=== PATIENT | male | born 1965 | race Caucasian/White ===

== ENCOUNTER 2017-03-02 06:32 | Emergency (ER) | payer SELFPAY ==
--- NOTE | 2017-03-02 07:28 | EDM.PDOC ---
ED HPI GENERAL MEDICAL PROBLEM - General Chief Complaint: General Stated Complaint: L SIDE CHEST PAIN/UNDER ARM Time Seen by Provider: 03/02/17 07:07 Source of Information: Reports: Patient, RN Notes Reviewed History Limitations: Reports: No Limitations - History of Present Illness INITIAL COMMENTS - FREE TEXT/NARRATIVE: The patient states that he has had a left axillary ache on and off for the past year. He states that it feels like gas. He has not identified any modifiers. He states that he fell twice about 5 years ago, then once onto his left side about 2 years ago, but cannot say that the fall had anything to do with the pain. He denies chest pain, palpitations, or dyspnea. He reports occasional hot flashes, but no nausea, diaphoresis, or sense of impending doom. The patient does not have a PCP, and has not previously seen a physician for this complaint. Left Chest Pain Score (Numeric/FACES): 3 - Related Data Allergies Allergy/AdvReac Type Severity Reaction Status Date / Time No Known Allergies Allergy Verified 03/02/17 06:46 Home Meds: Home Meds Ranitidine HCl [Zantac] 300 mg PO DAILY 03/17/16 [History] Pantoprazole Sodium [Protonix] 40 mg PO BID #60 tablet. 03/19/16 [Rx] Docusate Sodium [Stool Softener] 50 mg PO DAILY 07/14/16 [History] Orphenadrine [Norflex] 1 tab PO Q12H #20 tab.er 03/02/17 [Rx] Past Medical History HEENT History: Reports: Impaired Vision, Other (See Below) Other HEENT History: corrective lenses Respiratory History: Reports: Sleep Apnea Gastrointestinal History: Reports: GERD, GI Bleed, Hiatal Hernia Psychiatric History: Reports: Anxiety Endocrine/Metabolic History: Reports: Obesity/BMI 30+ - Infectious Disease History Infectious Disease History: Reports: Chicken Pox, Mumps - Past Surgical History GI Surgical History: Reports: Appendectomy Social & Family History - Family History Family Medical History: Noncontributory - Tobacco Use Smoking Status *Q: Never Smoker Second Hand Smoke Exposure: No - Caffeine Use Caffeine Use: Reports: Coffee - Alcohol Use Alcohol Use History: Yes Days Per Week of Alcohol Use: 2 Number of Drinks Per Day: 1 Total Drinks Per Week: 2 Alcohol Use Frequency: Socially - Recreational Drug Use Recreational Drug Use: No - Living Situation & Occupation Living situation: Reports: Occupation: Employed ([employer]) ED ROS GENERAL - Review of Systems Review Of Systems: See Below Constitutional: Reports: Other (Occasional hot flashes) HEENT: Reports: No Symptoms Respiratory: Reports: No Symptoms Cardiovascular: Reports: No Symptoms Endocrine: Reports: No Symptoms GI/Abdominal: Reports: No Symptoms : Reports: No Symptoms Musculoskeletal: Reports: No Symptoms Skin: Reports: No Symptoms Neurological: Reports: No Symptoms Psychiatric: Reports: No Symptoms Hematologic/Lymphatic: Reports: No Symptoms Immunologic: Reports: No Symptoms ED EXAM, GENERAL - Physical Exam Exam: See Below Exam Limited By: No Limitations General Appearance: Alert, WD/WN, No Apparent Distress Eye Exam: Bilateral Eye: Normal Inspection Ears: Normal External Exam, Hearing Grossly Normal Ear Exam: Bilateral Ear: Auricle Normal Nose: Normal Inspection, No Blood Throat/Mouth: Normal Inspection, Normal Lips, Normal Voice, No Airway Compromise Head: Atraumatic, Normocephalic Neck: Normal Inspection, Full Range of Motion Respiratory/Chest: No Respiratory Distress, Lungs Clear, Normal Breath Sounds, No Accessory Muscle Use, Other (Reproducible tenderness to the inferior aspect of the left pectoral muscle, particularly about the anterior axillary line. Nontender to surrounding area.) Cardiovascular: Normal Peripheral Pulses, Regular Rate, Rhythm, No Gallop, No JVD, No Murmur, No Rub Peripheral Pulses: 4+: Radial (L), Radial (R) GI/Abdominal: Normal Bowel Sounds, Soft, Non-Tender, No Organomegaly, No Distention, No Abnormal Bruit, No Mass, Other (Obese) (Male) Exam: Deferred Rectal (Males) Exam: Deferred Back Exam: Normal Inspection, Full Range of Motion, NT Extremities: Normal Inspection, Normal Range of Motion, Non-Tender (to left shoulder, humerus.), No Pedal Edema, Normal Capillary Refill. No: Limited Range of Motion (to LUE, shoulder) Neurological: Alert, Oriented, Normal Cognition, No Motor/Sensory Deficits Psychiatric: Normal Affect Skin Exam: Warm, Dry, Intact, Normal Color, No Rash Lymphatic: No Adenopathy Course - Vital Signs Last Recorded V/S: Last Vital Signs Temp 36.7 C 03/02/17 06:40 Pulse 81 03/02/17 06:40 Resp 18 03/02/17 06:40 BP 156/65 H 03/02/17 06:40 Pulse Ox 99 03/02/17 06:40 - Orders/Labs/Meds Orders: Active Orders 24 hr Category Date Time Status Chest 2V [CR] Stat Exams 03/02/17 07:20 Taken - Radiology Interpretation Free Text/Narrative:: Two-view chest radiograph appears to be grossly normal. Cardiac silhouette is within normal limits. No pulmonary vascular congestion. No pleural effusions. No focal infiltrate. No pneumothorax. Formal read per the Radiologist pending. - Re-Assessments/Exams Free Text/Narrative Re-Assessment/Exam: 03/02/17 08:18 Test results discussed with the patient. Because the symptoms are reproducible with palpation, the cause of the patient's pain is most likely musculoskeletal in etiology. 4 today's purposes, I will prescribe Norflex, however, I will refer the patient to the clinic, should his symptoms persist. It was explained to the patient that the diagnostic abilities in the ED are limited. Departure - Departure Time of Disposition: 08:18 Disposition: Home, Self-Care 01 Condition: Good Clinical Impression: Musculoskeletal chest pain - Discharge Information Referrals: PCP,Marcelino [Primary Care Provider] - Yuni Dunn PA-C [Physician [employer]] - Forms: ED Department Discharge Additional Instructions: You were seen in the emergency room for pain to the front of your left armpit area, on and off for the last year. Workup in the ER included a chest x-ray, which was normal. Because your pain is able to be reproduced by pressing on the left side of your chest, the cause of your pain is MOST LIKELY musculoskeletal. You have been started on the muscle relaxant Norflex. Take 1 tablet every 12 hours, as prescribed. If your symptoms persist, please follow-up with Yuni Dunn in the clinic. If any other problems, please do not hesitate to return to the ER. - My Orders Last 24 Hours: My Active Orders 03/02/17 07:20 Chest 2V [CR] Stat - Assessment/Plan Last 24 Hours: My Active Orders 03/02/17 07:20 Chest 2V [CR] Stat
[2017-03-02] MEDS ORDERED: Orphenadrine 100 MG Tab.ER PO STA (08:17)
--- NOTE | 2017-03-02 08:20 | CR ---
Chest: Two views of the chest were obtained. Comparison: No previous study. Heart size and mediastinum are within normal limits. Lungs are clear. Degenerative spurring is noted within the spine with scattered disc space narrowing. Mild thickening of the left clavicle compatible with old healed fracture is noted. Impression: 1. Incidental findings. Nothing acute is appreciated on two-view chest x-ray. Diagnostic code #2
[2017-03-02 08:35] VITALS: BP 126/84
== END 2017-03-02 08:35 | disposition home or self-care (01) ==
LOC: JD.ED 06:32
DX: R07.89 Other chest pain (principal); G47.30 Sleep apnea, unspecified; K21.9 Gastro-esophageal reflux disease without esophagitis; F41.9 Anxiety disorder, unspecified; E66.9 Obesity, unspecified; Z90.49 Acquired absence of other specified parts of digestive tract; Z79.899 Other long term (current) drug therapy
CPT/HCPCS: 71020; 99283; A9270

== ENCOUNTER 2019-05-10 11:29 | Emergency (ER) | payer BC ==
--- NOTE | 2019-05-10 11:59 | EDM.PDOC ---
ED HPI GENERAL MEDICAL PROBLEM - General Stated Complaint: POSS BLOOD TRANS Time Seen by Provider: 05/10/19 11:59 Source of Information: Reports: Patient History Limitations: Reports: No Limitations - History of Present Illness INITIAL COMMENTS - FREE TEXT/NARRATIVE: Patient is a 53-year-old male with a history of alcoholism, pedal edema, anemia , and upper GI bleed. He presents to the ED complaining of bilateral lower extremity edema that increased over the past 3 weeks, dizziness, fatigue, chills , with intermittent nausea and vomiting. He denies any chest pain or documented fever. He has a history of GERD and states he is on Prilosec 20 mg every day. Recently diagnosed with UTI one week ago and has been on Cipro since. The UTI symptoms have resolved. He did go to the clinic today with these concerns and lab work was obtained with the finding the patient was anemic. They did do a chest x-ray which showed cardiomegaly. They also did a CT of the abdomen and pelvis which revealed anasarca, hepatomegaly, splenomegaly, trace pericardial effusion, and ascites. Patient has not noted any dark tarry stools or mike blood within the stools. He does have some mild swelling to his testicles with some intermittent discomfort with development of swelling to legs. He has no history of malignancy. He has not been consuming alcohol. Denies any recent sick exposures. He has had similar symptoms 2-3 years ago with EGD and colonoscopy revealing upper GI bleed. In addition has intermittent swelling to legs that wax and wane. Patient denies chest pain, shortness of breath at rest, hemoptysis, productive cough, abdominal pain, nausea/vomiting, dysuria. He does complain of some mild discomfort to his genital region but notes there is no bruising or discoloration noted or significant pain with palpation of his testicles. - Related Data Allergies Allergy/AdvReac Type Severity Reaction Status Date / Time No Known Allergies Allergy Verified 05/10/19 12:00 Home Meds: Home Meds Ciprofloxacin [Ciprofloxacin HCl] 500 mg PO BID 05/10/19 [History] Famotidine [Pepcid] 20 mg PO DAILY 05/10/19 [History] Past Medical History HEENT History: Reports: Impaired Vision, Other (See Below) Other HEENT History: corrective lenses Respiratory History: Reports: Sleep Apnea Gastrointestinal History: Reports: GERD, GI Bleed, Hiatal Hernia Musculoskeletal History: Reports: Back Pain, Chronic Other Musculoskeletal History: chronic neck stiffness Psychiatric History: Reports: Anxiety Endocrine/Metabolic History: Reports: Obesity/BMI 30+ Oncologic (Cancer) History: Reports: None - Infectious Disease History Infectious Disease History: Reports: Chicken Pox, Mumps - Past Surgical History GI Surgical History: Reports: Appendectomy Social & Family History - Family History Family Medical History: Noncontributory - Caffeine Use Caffeine Use: Reports: Coffee - Living Situation & Occupation Living situation: Reports: Occupation: Employed ([employer]) ED ROS GENERAL - Review of Systems Review Of Systems: ROS reveals no pertinent complaints other than HPI. ED EXAM, GI/ABD - Physical Exam Exam: See Below Exam Limited By: No Limitations General Appearance: Alert, WD/WN, Obese Ears: Hearing Grossly Normal Nose: Normal Inspection Throat/Mouth: Normal Voice, No Airway Compromise, Other (dry oral mucosa) Head: Atraumatic, Normocephalic Neck: Normal Inspection, Supple, Non-Tender, Full Range of Motion. No: Lymphadenopathy (L), Lymphadenopathy (R) Respiratory/Chest: No Respiratory Distress, Lungs Clear, Normal Breath Sounds, No Accessory Muscle Use, Chest Non-Tender Cardiovascular: Normal Peripheral Pulses, Regular Rate, Rhythm, Systolic Murmur GI/Abdominal Exam: Normal Bowel Sounds, Soft, Non-Tender, No Organomegaly, No Distention (Male) Exam: Deferred Rectal (Males) Exam: Heme + Stool Back Exam: Normal Inspection. No: CVA Tenderness (L), CVA Tenderness (R) Extremities: Pedal Edema (pitting edema to mid thigh bilaterally with no pain, redness, or increased warmth noted. ) Neurological: Alert, Oriented, CN II-XII Intact, Normal Cognition, No Motor/ Sensory Deficits Psychiatric: Normal Affect, Normal Mood Skin Exam: Warm, Dry, Intact, No Rash, Pallor Course - Vital Signs Last Recorded V/S: Last Vital Signs Temp 99.7 F 05/10/19 16:15 Pulse 90 05/10/19 16:15 Resp 16 05/10/19 16:15 BP 140/84 05/10/19 16:15 Pulse Ox 100 05/10/19 16:15 - Orders/Labs/Meds Orders: Active Orders 24 hr Category Date Time Status EKG 12 Lead [EKG Documentation Completion] [RC] STAT Care 05/10/19 12:32 Active RED BLOOD CELLS LP [BBK] Stat Lab 05/10/19 12:12 Results TYPE AND SCREEN [BBK] Stat Lab 05/10/19 12:12 Results Labs: Laboratory Tests 05/10/19 05/10/19 05/10/19 Range/Units 12:12 12:12 12:12 WBC 3.85 L (4.23-9.07) K/mm3 RBC 2.74 L (4.63-6.08) M/mm3 Hgb 3.9 L* D (13.7-17.5) gm/L Hct 17.1 L (40.1-51.0) % MCV 62.4 L D (79.0-92.2) fl MCH 14.2 L (25.7-32.2) pg MCHC 22.8 L (32.2-35.5) g/dl RDW Std Deviation 50.2 H (35.1-43.9) fL Plt Count 273 D (163-337) K/mm3 Neutrophils % (Manual) 73 H (40-60) % Band Neutrophils % 1 (0-10) % Lymphocytes % (Manual) 24 (20-40) % Atypical Lymphs % 0 % Immat Monocytes % (Man) 0 Monocytes % (Manual) 2 (2-10) % Eosinophils % (Manual) 0 L (0.8-7.0) % Basophils % (Manual) 0 L (0.2-1.2) Metamyelocytes % 0 Myelocytes % 0 Promyelocytes % 0 Blast Cells % 0 Plasma Cell % (Manual) 0 Nucleated RBCs 0.0 % Platelet Estimate Adequate Hypochromasia 2+ moderate Poikilocytosis 1+ slight Anisocytosis 2+ moderate Microcytosis 2+ moderate Elliptocytes 1+ slight RBC Morph Comment Not Reportable PT (9.7-12.0) SECONDS INR APTT (22-31) SECONDS Sodium 138 (136-145) mEq/L Potassium 4.2 (3.5-5.1) mEq/L Chloride 103 (98-107) mEq/L Carbon Dioxide 25 (21-32) mEq/L Anion Gap 14.2 (5-15) BUN 12 (7-18) mg/dL Creatinine 0.8 (0.7-1.3) mg/dL Est Cr Clr Drug Dosing 111.12 mL/min Estimated GFR (MDRD) > 60 (>60) mL/min BUN/Creatinine Ratio 15.0 (14-18) Glucose 109 H (74-106) mg/dL Calcium 8.3 L (8.5-10.1) mg/dL Total Bilirubin 1.5 H (0.2-1.0) mg/dL AST 16 (15-37) U/L ALT 31 (16-63) U/L Alkaline Phosphatase 99 (46-116) U/L Troponin I < 0.017 (0.00-0.056) ng/mL C-Reactive Protein 2.5 H* (<1.0) mg/dL Total Protein 6.5 (6.4-8.2) g/dl Albumin 3.1 L (3.4-5.0) g/dl Globulin 3.4 gm/dL Albumin/Globulin Ratio 0.9 L (1-2) Urine Color (Yellow) Urine Appearance (Clear) Urine pH (5.0-8.0) Ur Specific [place] (1.005-1.030) Urine Protein (Negative) Urine Glucose (UA) (Negative) Urine Ketones (Negative) Urine Occult Blood (Negative) Urine Nitrite (Negative) Urine Bilirubin (Negative) Urine Urobilinogen (0.2-1.0) Ur Leukocyte Esterase (Negative) Urine RBC (0-5) /hpf Urine WBC (0-5) /hpf Ur Squamous Epith Cells (0-5) /hpf Urine Bacteria (FEW) /hpf Urine Mucus (FEW) /hpf Blood Type O POSITIVE Gel Antibody Screen Negative Crossmatch See Detail 05/10/19 05/10/19 Range/Units 12:12 13:38 WBC (4.23-9.07) K/mm3 RBC (4.63-6.08) M/mm3 Hgb (13.7-17.5) gm/L Hct (40.1-51.0) % MCV (79.0-92.2) fl MCH (25.7-32.2) pg MCHC (32.2-35.5) g/dl RDW Std Deviation (35.1-43.9) fL Plt Count (163-337) K/mm3 Neutrophils % (Manual) (40-60) % Band Neutrophils % (0-10) % Lymphocytes % (Manual) (20-40) % Atypical Lymphs % % Immat Monocytes % (Man) Monocytes % (Manual) (2-10) % Eosinophils % (Manual) (0.8-7.0) % Basophils % (Manual) (0.2-1.2) Metamyelocytes % Myelocytes % Promyelocytes % Blast Cells % Plasma Cell % (Manual) Nucleated RBCs % Platelet Estimate Hypochromasia Poikilocytosis Anisocytosis Microcytosis Elliptocytes RBC Morph Comment PT 13.4 H (9.7-12.0) SECONDS INR 1.24 APTT 29 (22-31) SECONDS Sodium (136-145) mEq/L Potassium (3.5-5.1) mEq/L Chloride (98-107) mEq/L Carbon Dioxide (21-32) mEq/L Anion Gap (5-15) BUN (7-18) mg/dL Creatinine (0.7-1.3) mg/dL Est Cr Clr Drug Dosing mL/min Estimated GFR (MDRD) (>60) mL/min BUN/Creatinine Ratio (14-18) Glucose (74-106) mg/dL Calcium (8.5-10.1) mg/dL Total Bilirubin (0.2-1.0) mg/dL AST (15-37) U/L ALT (16-63) U/L Alkaline Phosphatase (46-116) U/L Troponin I (0.00-0.056) ng/mL C-Reactive Protein (<1.0) mg/dL Total Protein (6.4-8.2) g/dl Albumin (3.4-5.0) g/dl Globulin gm/dL Albumin/Globulin Ratio (1-2) Urine Color Yellow (Yellow) Urine Appearance Clear (Clear) Urine pH 7.0 (5.0-8.0) Ur Specific [place] 1.015 (1.005-1.030) Urine Protein Negative (Negative) Urine Glucose (UA) Negative (Negative) Urine Ketones Negative (Negative) Urine Occult Blood Negative (Negative) Urine Nitrite Negative (Negative) Urine Bilirubin Negative (Negative) Urine Urobilinogen 0.2 (0.2-1.0) Ur Leukocyte Esterase Negative (Negative) Urine RBC Not seen (0-5) /hpf Urine WBC Not seen (0-5) /hpf Ur Squamous Epith Cells 0-5 (0-5) /hpf Urine Bacteria Not seen (FEW) /hpf Urine Mucus Not seen (FEW) /hpf Blood Type Gel Antibody Screen Crossmatch Meds: Medications Discontinued Medications Generic Name Dose Route Start Last Admin Trade Name Cullen PRN Reason Stop Dose Admin Pantoprazole Sodium 80 mg/ 100 mls @ 10 mls/hr 05/10/19 12:45 05/10/19 13:14 Sodium Chloride IV 8 mg/hr Q10H MARIALUISA 10 mls/hr Administration 8 MG/HR Sodium Chloride Confirm 05/10/19 15:52 05/10/19 16:35 Normal Saline Administered 05/10/19 15:53 Not Given Dose 50 mls @ as directed .ROUTE .STK-MED ONE Sodium Chloride 50 mls @ 1 mls/hr 05/10/19 16:45 05/10/19 16:12 Normal Saline IV 1 mls/hr ASDIRECTED MARIALUISA Administration Pantoprazole Sodium 40 mg 05/10/19 12:44 05/10/19 12:53 Protonix Iv IVPUSH 05/10/19 12:45 40 mg ONETIME ONE Administration - Re-Assessments/Exams Free Text/Narrative Re-Assessment/Exam: Patient is a 53-year-old male who presents to the ED with a history of low hemoglobin with shortness of breath with ambulation and also increased swelling to his lower extremities. States she's noticed a swelling to his legs over the past 3-4 weeks with increased as of recent. States he was evaluated at [facility] today with labwork obtained. Hemoglobin was found to be 4.3. His chemistry panel is essentially normal. White blood cell count was 5.5. Platelets 341. Differential was abnormal. States he has a slight cough which is normal for the patient nonproductive. Patient does not smoke. Has a history of GI bleed 3 years ago with EGD and colonoscopy obtained. Recently diagnosed with the urinary tract infection one week ago placed on Cipro and states all the dysuria has resolved. He has 2 doses of the Cipro left. He also complains some mild swelling to his testicles with pain present. This is been a chronic issue for quite some time. I will repeat his chem 14 since receiving IV contrast today for a baseline while hospitalized. In addition CBC will be obtained along with coag studies, CRP, troponin, EKG, urinalysis, type and screen with 2 units of PRBCs ordered. He does have pitting edema just above his knees bilaterally. Pro-BNP has been ordered. Chest x-ray obtained today indicating marked cardiomegaly a. Aorta is unremarkable. Pulmonary vascularity is normal. No acute alveolar infiltrates or pleural effusions are identified. Degenerative changes of the thoracic spine is present. CT of the abdomen and pelvis impression: Trace pericardial effusion. Mild cardiomegaly. Mild fatty infiltration of the liver. Hepatomegaly. Splenomegaly. Trace ascites in the pelvis. Anasarca. Stool Hemoccult test was positive. IV Protonix bolus 40 mg ordered along with IV Protonix drip. EKG sinus rhythm rate 84 with RI interval 194, QTC 488, no acute ST changes noted. Labs reviewed: White blood cell count 3.85, hemoglobin 3.9, MCV 62.4, platelet count 273, neutrophil percentage 73 with no left shift. INR 1.24. Soda potassium normal. EKG normal. Creatinine 0.8. Troponin less than 0.017. CRP 2.5. UA negative. Pro BNP is pending. 1451 I have spoken with Dr. Curiel environmental inspector General Surgeon suggested speaking with Dr. Goddard environmental inspector hospitalists for admission. [address] Goddard recommended transfer to [place] for GI consult. Suspects patient may have esophageal varicies as culprit for bleed. I have discussed with the patient and he has agreed to be transferred. Requests [facility]. [address] Mckenzie and Dr. Lynn with [facility]. They have agreed to admit patient. Transfer packet has been completed and EMS has been notified for transfer. Per nursing staff the second unit of blood has just started. Departure - Departure Time of Disposition: 15:26 Disposition: DC/Tfer to [facility] 02 Clinical Impression: Anasarca, Cardiomegaly GI bleed Qualifiers: GI bleed type/associated pathology: unspecified gastrointestinal hemorrhage type Qualified Code(s): K92.2 - Gastrointestinal hemorrhage, unspecified Anemia Qualifiers: Anemia type: iron deficiency Iron deficiency anemia type: chronic blood loss Qualified Code(s): D50.0 - Iron deficiency anemia secondary to blood loss ( chronic) Ascites Qualifiers: Ascites type: other type Qualified Code(s): R18.8 - Other ascites - Discharge Information Referrals: Simone Valdovinos Jr, MD [Primary Care Provider] - Forms: ED Department Discharge - My Orders Last 24 Hours: My Active Orders 05/10/19 12:12 RED BLOOD CELLS LP [BBK] Stat TYPE AND SCREEN [BBK] Stat 05/10/19 12:32 EKG 12 Lead [EKG Documentation Completion] [RC] STAT - Assessment/Plan Last 24 Hours: My Active Orders 05/10/19 12:12 RED BLOOD CELLS LP [BBK] Stat TYPE AND SCREEN [BBK] Stat 05/10/19 12:32 EKG 12 Lead [EKG Documentation Completion] [RC] STAT
[2019-05-10] MEDS ORDERED: Pantoprazole 40 MG Vial IVPUSH ONE (12:44)
[2019-05-10] MEDS ORDERED: Pantoprazole 80 MG in Sodium Chloride 0.9% 100 ML IV SCH (12:45)
[2019-05-10] MEDS ORDERED: Sodium Chloride 0.9% 50 ML ONE (15:52)
[2019-05-10 16:17] VITALS: BP 140/84
[2019-05-10] MEDS ORDERED: Sodium Chloride 0.9% 50 ML IV SCH (16:45)
== END 2019-05-10 16:24 ==
LOC: JD.ED 11:29
DX: I51.7 Cardiomegaly (principal); K92.2 Gastrointestinal hemorrhage, unspecified; D50.0 Iron deficiency anemia secondary to blood loss (chronic); R18.8 Other ascites; K21.9 Gastro-esophageal reflux disease without esophagitis; E66.9 Obesity, unspecified; Z90.49 Acquired absence of other specified parts of digestive tract; Z68.34 Body mass index [BMI] 34.0-34.9, adult; Z79.899 Other long term (current) drug therapy
CPT/HCPCS: 36415; 36430; 80053; 81001; 82270; 84484; 85007; 85027; 85610; 85730; 86140; 86850; 86900; 86901; 86922; 93005; 96365; 96366; 96376; 99285; C9113; J7030; J7050; P9016; 93010

== ENCOUNTER 2020-07-22 06:45 | Day surgery (SDC) | payer BC ==
[2020-07-22] MEDS ORDERED: Lactated Ringers 1,000 ML IV SCH (07:00)
[2020-07-22] MEDS ORDERED: Lidocaine 1%/Sod Bicarbonate in NS 8.4% 1 ML Syringe IDERM PRN (07:00)
[2020-07-22] MEDS ORDERED: Sodium Chloride 0.9% 10 ML Syringe FLUSH PRN (07:00)
[2020-07-22] MEDS ORDERED: Lidocaine 1% 4 ML ONE (07:22)
[2020-07-22] MEDS ORDERED: fentaNYL 100 MCG/2 ML SDV ONE (07:23)
[2020-07-22] MEDS ORDERED: Ketamine 500 mg/10 ML MDV ONE (07:23)
[2020-07-22] MEDS ORDERED: Propofol 200 MG/20 ML SDV ONE ×2 (07:23→08:05)
--- NOTE | 2020-07-22 07:36 | PCM.PREANE ---
Preanesthetic Assessment - Procedure Proposed Procedure: EGD with colonoscopy - Anesthesia/Transfusion/Family Hx Anesthesia History: Prior Anesthesia Without Reaction (had a headache one time after an endoscopy) Family History of Anesthesia Reaction: No Transfusion History: Prior Transfusion Without Reaction Additional History: No previous difficulties with intubation with which the patient is aware - Review of Systems General: No Symptoms Pulmonary: No Symptoms Cardiovascular: No Symptoms Gastrointestinal: No Symptoms Neurological: No Symptoms Other: Reports: None - Physical Assessment NPO Status Date: 07/22/20 (greater than 8 hours) Vital Signs: Last Vital Signs Temp 36.4 C 07/22/20 06:55 Pulse 89 07/22/20 06:55 Resp 16 07/22/20 06:55 BP 139/83 07/22/20 06:55 Pulse Ox 97 07/22/20 06:55 Height: 5 ft 11 in Weight: 112.037 kg ASA Class: 2 Mental Status: Alert & Oriented x3 Airway Class: Mallampati = 3 Dentition: Reports: Dentures Thyro-Mental Finger Breadths: 5 (Patient has large head, long TM distance, heavy morales. Difficult mask. Possible difficult airway.) Mouth Opening Finger Breadths: 3 ROM/Head Extension: Full Lungs: Clear to Auscultation, Normal Respiratory Effort Cardiovascular: Regular Rate, Regular Rhythm - Allergies Allergies/Adverse Reactions: Allergies Allergy/AdvReac Type Severity Reaction Status Date / Time No Known Allergies Allergy Verified 07/21/20 12:47 - Acknowledgements Anesthesia Type Planned: MAC Pt an Appropriate Candidate for the Planned Anesthesia: Yes Alternatives and Risks of Anesthesia Discussed w Pt/Guardian: Yes Pt/Guardian Understands and Agrees with Anesthesia Plan: Yes PreAnesthesia Questionnaire HEENT History: Reports: Impaired Vision, Other (See Below) Other HEENT History: corrective lenses Cardiovascular History: Reports: None Respiratory History: Reports: Sleep Apnea Gastrointestinal History: Reports: GERD, GI Bleed, Hiatal Hernia Other Gastrointestinal History: anasarca, esophagitis Genitourinary History: Reports: None PRESALES CONSULTANT History: Reports: None Musculoskeletal History: Reports: Back Pain, Chronic Other Musculoskeletal History: chronic neck stiffness Neurological History: Reports: None Psychiatric History: Reports: Anxiety, Panic Attack Endocrine/Metabolic History: Reports: Obesity/BMI 30+ Hematologic History: Reports: Anemia, Iron Deficiency Immunologic History: Reports: None Oncologic (Cancer) History: Reports: None Dermatologic History: Reports: Other (See Below) Other Dermatologic History: pruritis ani, perifolliculitis - Infectious Disease History Infectious Disease History: Reports: Chicken Pox, Mumps - Past Surgical History Head Surgeries/Procedures: Reports: None HEENT Surgical History: Reports: None Cardiovascular Surgical History: Reports: None Respiratory Surgical History: Reports: None GI Surgical History: Reports: Appendectomy, Colonoscopy, EGD Female Surgical History: Reports: None Male Surgical History: Reports: None Endocrine Surgical History: Reports: None Neurological Surgical History: Reports: None Oncologic Surgical History: Reports: None - SUBSTANCE USE Tobacco Use Status *Q: Never Tobacco User Recreational Drug Use History: No - HOME MEDS Home Medications: Home Meds Docusate Sodium [Stool Softener] 100 mg PO DAILY 07/21/20 [History] Iron Ag,Ps/C/Fa6/B12/Zn/SA/Sto [Niferex Tablet] 1 tab PO DAILY 07/21/20 [History] Multivitamin 1 tab PO DAILY 07/21/20 [History] Multivitamin with Minerals [Hair, Skin and Nails] 1 tab PO DAILY 07/21/20 [History] - CURRENT (IN HOUSE) MEDS Current Meds: Current Medications Lactated Ringer's (Ringers, Lactated) 1,000 mls @ 125 mls/hr IV ASDIRECTED MARIALUISA Stop: 07/22/20 23:00 Last Admin: 07/22/20 07:05 Dose: 125 mls/hr Documented by: Lidocaine/Sodium Bicarbonate (Buffered Lidocaine 1% In Ns 8.4%) 0.25 ml IDERM ONETIME PRN PRN Reason: Prior to IV Start Stop: 07/22/20 18:00 Last Admin: 07/22/20 07:15 Dose: 0.25 ml Documented by: Sodium Chloride (Saline Flush) 10 ml FLUSH ASDIRECTED PRN PRN Reason: Keep Vein Open Stop: 07/22/20 18:00 Discontinued Medications Fentanyl (Sublimaze) Confirm Administered Dose 100 mcg .ROUTE .STK-MED ONE Stop: 07/22/20 07:24 Lidocaine HCl (Xylocaine-Mpf 1%) Confirm Administered Dose 4 mls @ as directed .ROUTE .STK-MED ONE Stop: 07/22/20 07:23 Ketamine HCl (Ketalar) Confirm Administered Dose 500 mg .ROUTE .STK-MED ONE Stop: 07/22/20 07:24 Propofol (Diprivan 20 Ml) Confirm Administered Dose 400 mg .ROUTE .STK-MED ONE Stop: 07/22/20 07:24
--- NOTE | 2020-07-22 08:31 | PCM.OPNOTE ---
- General Post-Op/Procedure Note Date of Surgery/Procedure: 07/22/20 Operative Procedure(s): Esophagogastroduodenoscopy with cold forceps biopsy, Colonoscopy Findings: Presbyesophagus, Moderate to large hiatal hernia, esophagitis, gastritis, normal colonoscopy Pre Op Diagnosis: GERD, Iron Deficiency Anemia Post-Op Diagnosis: Same Anesthesia Technique: MAC Primary Surgeon: Michael Weber EBL in mLs: 5 Complications: None Condition: Good Free Text/Narrative:: After the patient gave verbal and written consent he was placed on blood pressure and pulse ox monitoring. he was given IV sedation which he tolerated well. The olympus gastroscope was inserted in the oropharynx and passed down to the 3rd portion of the duodenum. The scope was slowly withdrawn. The mucosal surfaces were carefully examined. Gastritis with linear erosions and erythema were noted in the antrum and cardia of the stomach. Cold forceps biopsies were taken for pathologic analysis. The scope was retroflexed and a moderate to large sliding type hiatal hernia was noted. The scope was straightened and then brought back to the GE junction and cold forceps biopsies were taken for esophagitis. The scope was removed and presbyesophagus was noted. The patient was then prepped for colonoscopy and the colonoscope was inserted per rectum and advanced to the cecum without difficulty. The ileocecal valve and appendiceal orfice were imaged documenting cecal intubation. The scope was slowly removed. The mucosal surfaces were carefully examined. The prep was excellent. The colon was entirely normal. The scope was then retroflexed in the rectum and then removed. The patient tolerated the procedures well, there were no complications. There was good hemostasis at the end of the procedure. The patient left the endoscopy suite in good condition.
[2020-07-22 09:18] VITALS: BP 114/71; PULSE 78
--- NOTE | 2020-07-22 09:36 | PCM48HPAN ---
Post Anesthesia Note - EVALUATION WITHIN 48HRS OF ANESTHETIC Vital Signs in Normal Range: Yes Patient Participated in Evaluation: No Respiratory Function Stable: Yes Airway Patent: Yes Cardiovascular Function Stable: Yes Hydration Status Stable: Yes Pain Control Satisfactory: Yes Nausea and Vomiting Control Satisfactory: Yes Mental Status Recovered: Yes Vital Signs: Last Vital Signs Temp 36.6 C 07/22/20 09:05 Pulse 78 07/22/20 09:05 Resp 17 07/22/20 09:05 BP 114/71 07/22/20 09:05 Pulse Ox 99 07/22/20 09:05 - COMMENTS/OBSERVATIONS Free Text/Narrative:: Patient okay to be discharged home. No concerns at this time.
== END 2020-07-22 09:29 | disposition home or self-care (01) ==
LOC: JD.SDS 06:45
PROVIDERS: ATTEND Family Medicine
DX: D50.0 Iron deficiency anemia secondary to blood loss (chronic) (principal); K29.50 Unspecified chronic gastritis without bleeding; K25.9 Gastric ulcer, unspecified as acute or chronic, without hemorrhage or perforation; K44.9 Diaphragmatic hernia without obstruction or gangrene; K21.00 Gastro-esophageal reflux disease with esophagitis, without bleeding; K22.8 Other specified diseases of esophagus; F41.9 Anxiety disorder, unspecified; E66.9 Obesity, unspecified; Z79.899 Other long term (current) drug therapy; Z90.49 Acquired absence of other specified parts of digestive tract; Z98.890 Other specified postprocedural states; Z68.35 Body mass index [BMI] 35.0-35.9, adult
CPT/HCPCS: 43239; 45378; J2001; J2704; J3010; J7120; 00813

== ENCOUNTER 2024-06-11 13:28 | Emergency (ER) | payer BC ==
[2024-06-11 14:22] LABS: A/G RATIO 1.2 (1-2); ALBUMIN 3.8 g/dl (3.4-5.0); ANION GAP 13.4 (5-15); BUN/CREATININE RATIO 11.5 (14-18); CALCIUM 9.1 mg/dL (8.5-10.1); CREATININE 1.3 mg/dL (0.7-1.3); EST CRCL DRUG DOSING (CG) 64.36 mL/min; POTASSIUM,K 4.4 mEq/L (3.5-5.1)
[2024-06-11] MEDS: Sodium Chloride 0.9% 1,000 ML IV ONE ×3 (14:53→17:58)
[2024-06-11 15:19] LABS: APPEARANCE,URINE CLEAR (Clear); BILIRUBIN,URINE NEGATIVE (Negative); COLOR,URINE LIGHT YELLOW (Yellow); GLUCOSE,URINE 3+ (Negative); KETONES,URINE 1+ (Negative); LEUKOCYTE ESTERASE,URINE NEGATIVE (Negative); NITRITE,URINE NEGATIVE (Negative); OCCULT BLOOD,URINE NEGATIVE (Negative); PROTEIN,URINE NEGATIVE (Negative); UROBILINOGEN,URINE 0.2 (0.2-1.0)
[2024-06-11 16:31] LABS: HEMOGLOBIN A1C 10.8 %
[2024-06-11 17:36] LABS: ANION GAP 10.9 (5-15); CALCIUM 8.8 mg/dL (8.5-10.1); EST CRCL DRUG DOSING (CG) 83.67 mL/min; POTASSIUM,K 4.9 mEq/L (3.5-5.1)
[2024-06-11] MEDS: Insulin Regular in 0.9 % NACL 100 ML IV SCH (17:58)
[2024-06-11 18:10] VITALS: PULSE 86
[2024-06-11 20:45] LABS: ANION GAP 10.4 (5-15); BUN/CREATININE RATIO 11.1 (14-18); CALCIUM 8.8 mg/dL (8.5-10.1); CREATININE 0.9 mg/dL (0.7-1.3); EST CRCL DRUG DOSING (CG) 92.96 mL/min; POTASSIUM,K 3.4 mEq/L (3.5-5.1)
[2024-06-11] MEDS: Potassium Chloride 20 MEQ Tab.ER PO ONE (21:34)
[2024-06-11 22:21] VITALS: BP 123/79
== END 2024-06-11 22:16 | disposition home or self-care (01) ==
LOC: JD.ED 13:28
DX: R73.9 Hyperglycemia, unspecified (principal); K21.9 Gastro-esophageal reflux disease without esophagitis; E66.9 Obesity, unspecified; Z68.39 Body mass index [BMI] 39.0-39.9, adult; Z90.49 Acquired absence of other specified parts of digestive tract; Z79.899 Other long term (current) drug therapy
CPT/HCPCS: 36415; 80048; 80053; 81003; 82947; 83036; 83930; 96360; 96361; 99284; A9270; J1815; J7030; 99283